=== PATIENT | male | born 1995 | race African-American/Black ===

== ENCOUNTER 2018-08-04 22:18 | Emergency (ER) | payer MEDICAID ==
[~2018-08-04] VITALS: Ht 182.9 cm; Wt 73.0 kg
[2018-08-05] MEDS ORDERED: TETANUS, DIPHTHERIA, PERTUSSIS VAC/PF 0.5ML (>7YR OLD) IM ONE (00:30)
[2018-08-05] MEDS ORDERED: LIDOCAINE HCL/EPINEPHRINE 1%-EPI 1:100,000 20 ML VIAL INFIL ONE (01:00)
[2018-08-05 05:37] VITALS: BP 130/88
[2018-08-05] MEDS ORDERED: CEPHALEXIN 250MG CAPSULE PO SCH (12:00)
== END 2018-08-05 09:44 | disposition left against medical advice (07) ==
LOC: ER 22:18
DX: S60.457A Superficial foreign body of left little finger, initial encounter (principal); X58.XXXA Exposure to other specified factors, initial encounter; Y93.9 Activity, unspecified; F31.9 Bipolar disorder, unspecified; F20.9 Schizophrenia, unspecified
CPT/HCPCS: 73130; 90471; 90715; 99284; J3490; Z7610

== ENCOUNTER 2018-10-15 09:34 | Emergency (ER) | payer MEDICAID ==
[~2018-10-15] VITALS: Ht 170.2 cm; Wt 70.0 kg
[2018-10-15 12:40] VITALS: BP 123/72
== END 2018-10-15 12:46 | disposition home or self-care (01) ==
LOC: ER 09:34
DX: M54.9 Dorsalgia, unspecified (principal)
CPT/HCPCS: 72131; 99284

== ENCOUNTER 2021-09-13 17:26 | Emergency (ER) | payer MEDICAID ==
[~2021-09-13] VITALS: Ht 182.9 cm; Wt 83.0 kg
[2021-09-13] MEDS ORDERED: METOCLOPRAMIDE HCL 10MG/2ML VIAL IM NR (17:45)
[2021-09-13 18:07] LABS: BASOPHILS % 0.3 % (0.0-2.0); HEMATOCRIT. 32.9 % (42.0-52.0); LYMPHOCYTES % 20.6 % (20.0-50.0); MEAN CORPUSCULAR HEMOGLOBIN 27.4 pg (28.0-32.0); MEAN CORPUSCULAR VOLUME 82.4 fL (80.0-94.0); MONOCYTES % 8.2 % (2.0-8.0); NEUTROPHILS % 69.9 % (40.0-76.0); PLATELET 301 x1000/uL (130-400); RED CELL DISTRIBUTION WIDTH 13.8 % (11.6-14.6)
[2021-09-13 18:12] LABS: CHLORIDE 108 mEq/L (98-107)
[2021-09-13 18:15] LABS: ETHANOL BLOOD < 10 mg/dL
[2021-09-13 18:19] LABS: CLARITY URINE CLEAR (CLEAR); COLOR URINE YELLOW (YELLOW); KETONES URINE TRACE (NEGATIVE); LEUKOCYTE ESTERASE URINE NEGATIVE (NEGATIVE); NITRITE URINE NEGATIVE (NEGATIVE); OCCULT BLOOD URINE NEGATIVE (NEGATIVE); PROTEIN URINE NEGATIVE (NEGATIVE); SPECIFIC GRAVITY URINE 1.023 (1.005-1.030); UROBILINOGEN URINE 0.2 E.U./dL (0.2-1.0)
[2021-09-13 18:41] LABS: *BARBITURATES SCREEN URINE NEGATIVE (NEGATIVE); *BENZODIAZEPINES SCREEN URINE NEGATIVE (NEGATIVE)
[2021-09-13 18:42] LABS: *AMPHETAMINES SCREEN URINE PRESUMTIVE POSITIVE (NEGATIVE); *COCAINE SCREEN URINE NEGATIVE (NEGATIVE); CANNABINOID URINE SCREEN PRESUMTIVE POSITIVE (NEGATIVE); METHADONE URINE SCREEN NEGATIVE (NEGATIVE); OPIATES URINE SCREEN NEGATIVE (NEGATIVE); PHENCYCLIDINE URINE SCREEN NEGATIVE (NEGATIVE)
[2021-09-13] MEDS ORDERED: SODIUM CHLORIDE 0.9% 1,000 ML IV ONE ×2 (19:00)
[2021-09-13] MEDS ORDERED: ONDANSETRON HCL 4MG/2ML INJ IM ONE (20:00)
[2021-09-14] MEDS: OLANZAPINE 10MG TABLET PO SCH (21:37)
[2021-09-15] MEDS ORDERED: LORAZEPAM 1MG TABLET PO ONE (21:15)
[2021-09-15] MEDS: OLANZAPINE 10MG TABLET PO SCH (22:23)
[2021-09-16 12:07] VITALS: BP 122/81
== END 2021-09-16 12:08 | disposition home or self-care (01) ==
LOC: ER 17:26
DX: T50.902A Poisoning by unspecified drugs, medicaments and biological substances, intentional self-harm, initial encounter (principal); Y92.9 Unspecified place or not applicable; R45.851 Suicidal ideations; Z20.822 Contact with and (suspected) exposure to COVID-19
CPT/HCPCS: 36415; 70450; 80053; 80305; 80320; 81003; 85025; 96360; 96372; 99285; C9803; J2405; J2765; J7030; U0003; U0005; G0480